=== PATIENT | male | born 2000 | race Caucasian/White ===

== ENCOUNTER 2019-07-06 22:51 | Emergency (ER) | payer OTHER ==
[~2019-07-06] VITALS: Ht 177.8 cm; Wt 72.6 kg
[2019-07-07] MEDS ORDERED: ZOFRAN4 MG PO (06:43)
[2019-07-07] MEDS ORDERED: INTESTINEX680 M1 PO (06:43)
[2019-07-07] MEDS ORDERED: PEPCID40 MG PO (06:43)
== END 2019-07-07 07:19 | disposition home or self-care (01) ==
LOC: EMR PED 22:51 → ER 22:51
DX: K52.89 Other specified noninfective gastroenteritis and colitis (principal)